=== PATIENT | female | born 1950 | race Caucasian/White ===

== ENCOUNTER → 2020-12-01 | Outpatient (CLI) | payer MEDICARE, BC, OTHER | LOC: KOH-I 10:00 | DX: M48.061 Spinal stenosis, lumbar region without neurogenic claudication (principal); M51.36 Other intervertebral disc degeneration, lumbar region; M51.37 Other intervertebral disc degeneration, lumbosacral region; M48.07 Spinal stenosis, lumbosacral region; M41.86 Other forms of scoliosis, lumbar region; M41.87 Other forms of scoliosis, lumbosacral region | CPT/HCPCS: 72131 ==

== ENCOUNTER → 2020-12-21 | Outpatient (CLI) | payer MEDICARE, OTHER, BC | LOC: HEART 5 08:41 | DX: Z01.810 Encounter for preprocedural cardiovascular examination (principal); I25.10 Atherosclerotic heart disease of native coronary artery without angina pectoris; R94.39 Abnormal result of other cardiovascular function study | CPT/HCPCS: 78452; A9502; J2785 ==

== ENCOUNTER → 2021-01-01 | Outpatient (CLI) | payer MEDICARE, BC, OTHER ==
[2021-01-01 12:55] LABS: HEMOGLOBIN 14.1 gm/dl (12.3-15.3); RED BLOOD COUNT 4.61 M/UL (4.00-5.10); WHITE BLOOD COUNT 3.6 K/UL (4.5-11.0)
[2021-01-01 13:09] LABS: BUN/CREATININE RATIO 24 (0-10)
== END ==
LOC: OPSV2 11:50
PROVIDERS: Orthopaedic Surgery
DX: Z01.818 Encounter for other preprocedural examination (principal); M48.061 Spinal stenosis, lumbar region without neurogenic claudication; M54.16 Radiculopathy, lumbar region; Z88.8 Allergy status to other drugs, medicaments and biological substances; Z20.822 Contact with and (suspected) exposure to COVID-19
CPT/HCPCS: 36415; 71046; 80048; 81001; 85027; 85610; 85730; 93005; U0003

== ENCOUNTER → 2021-01-03 | Outpatient (CLI) | payer MEDICARE, BC, OTHER ==
[2021-01-03 11:33] LABS: BUN/CREATININE RATIO 19 (0-10)
== END ==
LOC: LAB 10:36
PROVIDERS: Orthopaedic Surgery
DX: M43.26 Fusion of spine, lumbar region (principal)
CPT/HCPCS: 80048; 86850; 86900; 86901

== ENCOUNTER → 2021-06-21 | Outpatient (CLI) | payer MEDICARE ==
[~2021-06-21] VITALS: Ht 162.6 cm; Wt 109.8 kg
== END ==
LOC: OPSV 10:00
DX: M81.0 Age-related osteoporosis without current pathological fracture (principal)
CPT/HCPCS: 96372

== ENCOUNTER → 2022-01-12 | Outpatient (CLI) | payer OTHER ==
[~2022-01-12] VITALS: Ht 165.1 cm; Wt 106.6 kg
== END ==
LOC: OPSV 14:52
DX: M81.0 Age-related osteoporosis without current pathological fracture (principal)
CPT/HCPCS: 96372

== ENCOUNTER → 2022-04-21 | Outpatient (CLI) | payer OTHER | LOC: KOH-I 10:58 | DX: K57.92 Diverticulitis of intestine, part unspecified, without perforation or abscess without bleeding (principal); R10.9 Unspecified abdominal pain; K44.9 Diaphragmatic hernia without obstruction or gangrene; N28.9 Disorder of kidney and ureter, unspecified; C73 Malignant neoplasm of thyroid gland | CPT/HCPCS: 74176 ==

== ENCOUNTER → 2022-07-19 | Outpatient (CLI) | payer OTHER | LOC: EROP 14:09 | DX: U07.1 COVID-19 (principal); Z23 Encounter for immunization | CPT/HCPCS: M0222; Q0222 ==